=== PATIENT | female | born 1970 | race Caucasian/White ===

== ENCOUNTER 2017-02-08 08:44 | Emergency (ER) | payer MEDICAID ==
[~2017-02-08] VITALS: Ht 157.5 cm; Wt 70.3 kg
[2017-02-08] MEDS ORDERED: SODIUM CHLORIDE 0.9% 1,000 ML IVB ONE (09:06)
[2017-02-08] MEDS ORDERED: ONDANSETRON HCL 4 MG/2 ML VIAL IV ONE (09:15)
[2017-02-08 09:36] LABS: Basophils # (auto) 0.1 uL; Eosinophils # (auto) 0 uL; Hemoglobin 14.5 g/dL (12.2-16.2); Lymphocytes # (auto) 0.6 uL; Neutrophils % (auto) 91.1 % (37.0-80.0)
[2017-02-08 09:37] LABS: Basophils % (auto) 0.8 % (0.0-2.0); Eosinophils % (auto) 0.1 % (0.0-7.0); Lymphocytes % (auto) 3.9 % (10.0-50.0); Mean Corpuscular Hemoglobin 26.3 pg (28.0-32.0); Mean Corpuscular Hgb Conc. 31.6 g/dL (32.0-36.0); Monocytes # (auto) 0.6 uL; Monocytes % (auto) 4.1 % (0.0-12.0); Neutrophils # (auto) 14.1 uL; Platelet Count (auto) 214 10^3/uL (140-450); Red Cell Distribution Width 14.4 % (11.8-14.3); White Blood Cell 15.5 10^3/uL (4.4-10.8)
[2017-02-08 09:39] LABS: Urine Bilirubin Negative (Negative); Urine Blood Negative /uL (Negative); Urine Color Yellow (Yellow); Urine Glucose Normal (Normal); Urine Ketone Negative (Negative); Urine Mucus FEW (None Seen); Urine Nitrite Negative (Negative); Urine RBC <1 /hpf (0 - 4); Urine Squamous Epithelial Cell FEW /hpf (<5); Urine Urobilinogen Normal (Negative)
[2017-02-08 09:57] LABS: Albumin 3.7 g/dL (3.4-5.0); BUN/Creatinine Ratio 24.7; Bilirubin, Total 0.4 mg/dL (0.2-1.0); Calcium 8.8 mg/dL (8.5-10.1); Potassium 4.8 mmol/L (3.5-5.1); Total Protein 8.7 g/dL (6.4-8.2)
[2017-02-08 11:09] VITALS: BP 133/78
== END 2017-02-08 11:42 | disposition home or self-care (01) ==
LOC: ER 08:44
DX: K52.9 Noninfective gastroenteritis and colitis, unspecified (principal); Z91.041 Radiographic dye allergy status
CPT/HCPCS: 36415; 74176; 80053; 81001; 85025; 93005; 94761; 96361; 96374; 99285; J2405; J7030

== ENCOUNTER 2017-03-17 10:20 | Emergency (ER) | payer MEDICAID ==
[~2017-03-17] VITALS: Ht 157.5 cm; Wt 70.8 kg
[2017-03-17 10:45] LABS: Basophils # (auto) 0.1 uL; Basophils % (auto) 0.6 % (0.0-2.0); Eosinophils # (auto) 0.2 uL; Eosinophils % (auto) 1.6 % (0.0-7.0); Hematocrit 43.7 % (36.0-46.0); Hemoglobin 14.2 g/dL (12.2-16.2); Lymphocytes # (auto) 1.8 uL; Lymphocytes % (auto) 18.1 % (10.0-50.0); Mean Corpuscular Hemoglobin 26.5 pg (28.0-32.0); Mean Corpuscular Hgb Conc. 32.4 g/dL (32.0-36.0); Mean Corpuscular Volume 81.8 fL (80.0-100.0); Monocytes # (auto) 0.7 uL; Monocytes % (auto) 7.1 % (0.0-12.0); Neutrophils # (auto) 7.3 uL; Neutrophils % (auto) 72.6 % (37.0-80.0); Nucleated Red Blood Cells % 0.1 %; Platelet Count (auto) 236 10^3/uL (140-450); Red Blood Cells 5.34 10^6/uL (4.0-5.20); Red Cell Distribution Width 14.9 % (11.8-14.3)
[2017-03-17 10:48] LABS: Urine Bacteria NONE SEEN /hpf (None Seen); Urine Blood Negative /uL (Negative); Urine Specific Gravity 1.011 (1.001-1.035); Urine WBC 1 /hpf (0 - 5)
[2017-03-17 11:03] LABS: Albumin 3.6 g/dL (3.4-5.0); BUN/Creatinine Ratio 17.6; Bilirubin, Total 0.3 mg/dL (0.2-1.0); Calcium 9.2 mg/dL (8.5-10.1); Potassium 4.2 mmol/L (3.5-5.1); Total Protein 8.4 g/dL (6.4-8.2)
[2017-03-17] MEDS ORDERED: PROMETHAZINE HCL 25 MG/ML 1ML IV PRN (15:15)
[2017-03-17] MEDS ORDERED: KETOROLAC TROMETH 30 MG/ML 1ML VIAL IV ONE (15:15)
[2017-03-17 15:37] LABS: Magnesium 2.4 mg/dL (1.6-2.6)
[2017-03-17 15:46] VITALS: BP 161/98
== END 2017-03-17 17:28 | disposition home or self-care (01) ==
LOC: ER 10:20
DX: K80.20 Calculus of gallbladder without cholecystitis without obstruction (principal); N39.0 Urinary tract infection, site not specified
CPT/HCPCS: 36415; 76705; 80053; 81001; 82962; 83690; 83735; 85025; 96374; 99285; J1885

== ENCOUNTER 2017-03-19 19:00 | Emergency (ER) | payer MEDICAID ==
[~2017-03-19] VITALS: Ht 157.5 cm; Wt 70.8 kg
[2017-03-19 22:21] VITALS: BP 120/82
[2017-03-19] MEDS ORDERED: SODIUM CHLORIDE 0.9% 1,000 ML IV ONE (23:15)
== END 2017-03-20 00:54 | disposition home or self-care (01) ==
LOC: ER 19:00
DX: R42 Dizziness and giddiness (principal); T50.905A Adverse effect of unspecified drugs, medicaments and biological substances, initial encounter; E86.0 Dehydration; Z90.710 Acquired absence of both cervix and uterus; Z91.041 Radiographic dye allergy status; Y92.89 Other specified places as the place of occurrence of the external cause
CPT/HCPCS: 99284; J7030

== ENCOUNTER 2022-07-18 10:02 | Inpatient (IN) | payer MEDICAID ==
[~2022-07-18] VITALS: Ht 157.5 cm; Wt 62.1 kg
[2022-07-18 10:58] LABS: Basophils # (auto) 0.1 10 ^3/uL (0-0.2); Monocytes # (auto) 0.7 10 ^3/uL (0-1.3); Neutrophils # (auto) 9.1 10 ^3/uL (1.6-8.6); White Blood Cell 11.6 10^3/uL (4.4-10.8)
[2022-07-18 11:01] LABS: Eosinophils # (auto) 0.6 10 ^3/uL (0-0.8); Eosinophils % (auto) 5.4 % (0.0-7.0); Lymphocytes # (auto) 1.1 10 ^3/uL (0.4-5.4); Lymphocytes % (auto) 9.1 % (10.0-50.0); Mean Corpuscular Hemoglobin 26.5 pg (28.0-32.0); Mean Corpuscular Hgb Conc. 32.5 g/dL (32.0-36.0); Mean Corpuscular Volume 81.5 fL (80.0-100.0); Monocytes % (auto) 6.3 % (0.0-12.0); Neutrophils % (auto) 78.2 % (37.0-80.0); Red Blood Cells 4.17 10^6/uL (4.0-5.20); Red Cell Distribution Width 16.4 % (11.8-14.3)
[2022-07-18 11:09] LABS: Urine Bacteria NONE SEEN /hpf (None Seen); Urine Blood 1+ /uL (Negative); Urine Budding Yeast FEW /hpf (None Seen); Urine Mucus FEW (None Seen); Urine Specific Gravity 1.021 (1.001-1.035); Urine WBC 209 /hpf (0 - 5)
[2022-07-18 11:24] LABS: Calcium 10.8 mg/dL (8.5-10.1); Lactic Acid w/Reflex 2.4 mmol/L (0.4-2.0); Potassium 3.2 mmol/L (3.5-5.1)
[2022-07-18 11:30] LABS: BUN/Creatinine Ratio 12.3 (10.0-20.0); Bilirubin, Total 0.5 mg/dL (0.2-1.0); Total Protein 6.3 g/dL (6.4-8.2)
[2022-07-18] MEDS ORDERED: cefTRIAXone 1GM/50ML D5W 50 ML IV ONE (18:00)
[2022-07-18] MEDS ORDERED: NITROGLYCERIN 0.4 MG SL TAB SL PRN (18:00)
[2022-07-18] MEDS ORDERED: ALBUTEROL SULF 2.5 MG/0.5ML(0.5%) NEB SOLN NEB PRN ×2 (18:00→21:00)
[2022-07-18] MEDS ORDERED: IPRATROPIUM BROM 0.5 MG/2.5ML INH SOL NEB PRN ×2 (18:00→21:00)
[2022-07-18] MEDS ORDERED: MORPHINE SULFATE INJ 2 MG/ml SYRG IV PRN ×2 (18:00)
[2022-07-18] MEDS ORDERED: ACETAMINOPHEN 325 MG TAB PO PRN (18:00)
[2022-07-18] MEDS ORDERED: IOHEXOL 350 MG/ML 100ML IJ ONE (18:25)
[2022-07-18] MEDS: SODIUM CHLORIDE 0.9% 1,000 ML IV SCH (18:37)
[2022-07-18] MEDS: POTASSIUM CHL 20MEQ/100ML 100 ML IV SCH ×2 (18:37→22:01)
[2022-07-18] MEDS: ENOXAPARIN SOD 40 MG/0.4 ML SYRINGE SC SCH (18:45)
[2022-07-18] MEDS: ALBUTEROL SULF 2.5 MG/0.5ML(0.5%) NEB SOLN NEB SCH (19:06)
[2022-07-18] MEDS: IPRATROPIUM BROM 0.5 MG/2.5ML INH SOL NEB SCH (19:07)
[2022-07-18 19:13] LABS: CRP High Sensitivity 4.83 mg/dL (< 0.3)
[2022-07-18 20:57] VITALS: BP 103/33
[2022-07-18] MEDS ORDERED: PANTOPRAZOLE 40 MG/10 ML VIAL INJ IV ONE (21:00)
[2022-07-19] MEDS: IPRATROPIUM BROM 0.5 MG/2.5ML INH SOL NEB SCH ×4 (00:35→11:55)
[2022-07-19] MEDS: ALBUTEROL SULF 2.5 MG/0.5ML(0.5%) NEB SOLN NEB SCH ×4 (00:36→11:55)
[2022-07-19 06:35] LABS: Albumin 2.5 g/dL (3.4-5.0); Calcium 10.5 mg/dL (8.5-10.1); Potassium 3.3 mmol/L (3.5-5.1)
[2022-07-19 06:39] LABS: Basophils # (auto) 0.1 10 ^3/uL (0-0.2); Basophils % (auto) 0.8 % (0.0-2.0); Eosinophils # (auto) 0.2 10 ^3/uL (0-0.8); Eosinophils % (auto) 2.3 % (0.0-7.0); Hematocrit 27.5 % (36.0-46.0); Hemoglobin 9.1 g/dL (12.2-16.2); Lymphocytes % (auto) 10.5 % (10.0-50.0); Mean Corpuscular Hgb Conc. 33.2 g/dL (32.0-36.0); Mean Corpuscular Volume 81.5 fL (80.0-100.0); Monocytes # (auto) 0.5 10 ^3/uL (0-1.3); Monocytes % (auto) 5.2 % (0.0-12.0); Neutrophils # (auto) 7.4 10 ^3/uL (1.6-8.6); Neutrophils % (auto) 81.2 % (37.0-80.0); Red Blood Cells 3.38 10^6/uL (4.0-5.20); Red Cell Distribution Width 16.3 % (11.8-14.3); White Blood Cell 9.1 10^3/uL (4.4-10.8)
[2022-07-19 06:40] LABS: BUN/Creatinine Ratio 15.7 (10.0-20.0); Bilirubin, Total 0.4 mg/dL (0.2-1.0); Total Protein 5.5 g/dL (6.4-8.2)
[2022-07-19] MEDS: SODIUM CHLORIDE 0.9% 1,000 ML IV SCH (07:47)
[2022-07-19] MEDS ORDERED: cefTRIAXone 1GM/50ML D5W 50 ML IV SCH (09:00)
[2022-07-19] MEDS: PANTOPRAZOLE 40 MG/10 ML VIAL INJ IV SCH (09:33)
[2022-07-19] MEDS: ENOXAPARIN SOD 40 MG/0.4 ML SYRINGE SC SCH (09:33)
[2022-07-19] MEDS ORDERED: FAMOTIDINE (10MG/ML) 2ML VL IV ONE (12:45)
[2022-07-19] MEDS ORDERED: diphenhdrAMINE HCL 50 MG/1 ML VL IV ONE (12:45)
[2022-07-19] MEDS ORDERED: methylPREDNISolone SOD SUCC 125 MG/2 ML VL IV ONE (12:45)
[2022-07-19] MEDS ORDERED: IOHEXOL 300 MG/ML 100ML BOTTLE IJ ONE (14:58)
[2022-07-19] MEDS ORDERED: VANCOMYCIN PER PHARMACY 0 MG IV SCH (16:15)
[2022-07-19] MEDS ORDERED: VANCOMYCIN 1GM/250ML 250 ML IV ONE (16:45)
[2022-07-19 17:00] VITALS: BP 142/86
[2022-07-19] MEDS: POTASSIUM CHLORIDE 40 MEQ in SOD CHL 0.45% 1,000 ML IV SCH (18:35)
[2022-07-19] MEDS: HYDROcodone-ACET 5/325MG TAB PO PRN (21:21)
[2022-07-19 22:00] VITALS: BP 120/83
[2022-07-20] MEDS: POTASSIUM CHLORIDE 40 MEQ in SOD CHL 0.45% 1,000 ML IV SCH (04:37)
[2022-07-20 05:19] VITALS: BP 155/92
[2022-07-20 06:00] LABS: Basophils # (auto) 0 10 ^3/uL (0-0.2); Basophils % (auto) 0.5 % (0.0-2.0); Eosinophils # (auto) 0 10 ^3/uL (0-0.8); Hematocrit 30.5 % (36.0-46.0); Hemoglobin 10.2 g/dL (12.2-16.2); Lymphocytes # (auto) 0.4 10 ^3/uL (0.4-5.4); Lymphocytes % (auto) 4.7 % (10.0-50.0); Mean Corpuscular Hemoglobin 27.1 pg (28.0-32.0); Mean Corpuscular Hgb Conc. 33.4 g/dL (32.0-36.0); Mean Corpuscular Volume 81.1 fL (80.0-100.0); Monocytes # (auto) 0.3 10 ^3/uL (0-1.3); Monocytes % (auto) 3.3 % (0.0-12.0); Neutrophils # (auto) 8.1 10 ^3/uL (1.6-8.6); Neutrophils % (auto) 91.5 % (37.0-80.0); Red Blood Cells 3.76 10^6/uL (4.0-5.20); Red Cell Distribution Width 16.5 % (11.8-14.3); White Blood Cell 8.9 10^3/uL (4.4-10.8)
[2022-07-20 06:02] LABS: Calcium 11.7 mg/dL (8.5-10.1)
[2022-07-20 06:03] LABS: BUN/Creatinine Ratio 15.4 (10.0-20.0)
[2022-07-20 08:01] LABS: Albumin 2.8 g/dL (3.4-5.0); Calcium 11.2 mg/dL (8.5-10.1); Potassium 4.3 mmol/L (3.5-5.1)
[2022-07-20 08:05] LABS: BUN/Creatinine Ratio 14.6 (10.0-20.0); Bilirubin, Total 0.3 mg/dL (0.2-1.0); Total Protein 6.5 g/dL (6.4-8.2)
[2022-07-20 08:26] LABS: INR 0.95 (0.9-1.15); Partial Thromboplastin Time 23.2 sec (24.6-33.4)
[2022-07-20] MEDS: VANCOMYCIN 1GM/250ML 250 ML IV SCH ×2 (08:50→23:50)
[2022-07-20] MEDS: SODIUM CHLORIDE 0.9% 1,000 ML IV SCH ×3 (08:51→23:34)
[2022-07-20 09:00] VITALS: BP 147/95
[2022-07-20] MEDS ORDERED: cefTRIAXone 1GM/50ML D5W 50 ML IV SCH (10:00)
[2022-07-20] MEDS: PANTOPRAZOLE 40 MG/10 ML VIAL INJ IV SCH (10:10)
[2022-07-20] MEDS: CEFTRIAXONE SODIUM 2 GM in D5W 5% 100 ML IV SCH (10:10)
[2022-07-20] MEDS: ENOXAPARIN SOD 40 MG/0.4 ML SYRINGE SC SCH (10:10)
[2022-07-20 13:00] VITALS: BP 141/74
[2022-07-20 16:00] VITALS: BP 135/75
[2022-07-20 22:00] VITALS: BP 131/85
[2022-07-20] MEDS: HYDROcodone-ACET 5/325MG TAB PO PRN (22:04)
[2022-07-21] MEDS: SODIUM CHLORIDE 0.9% 1,000 ML IV SCH ×3 (03:49→16:35)
[2022-07-21 05:00] VITALS: BP 148/97
[2022-07-21 06:11] LABS: Albumin 2.2 g/dL (3.4-5.0); Calcium 10.7 mg/dL (8.5-10.1); Potassium 3.7 mmol/L (3.5-5.1)
[2022-07-21 06:13] LABS: BUN/Creatinine Ratio 17.5 (10.0-20.0)
[2022-07-21 06:15] LABS: Basophils # (auto) 0.1 10 ^3/uL (0-0.2); Eosinophils # (auto) 0.3 10 ^3/uL (0-0.8); Nucleated Red Blood Cells % 0.1 %; Red Cell Distribution Width 16.4 % (11.8-14.3)
[2022-07-21 06:16] LABS: Bilirubin, Total 0.2 mg/dL (0.2-1.0); Total Protein 5.1 g/dL (6.4-8.2)
[2022-07-21 06:17] LABS: Basophils % (auto) 0.8 % (0.0-2.0); Eosinophils % (auto) 2.7 % (0.0-7.0); Hematocrit 28.8 % (36.0-46.0); Hemoglobin 9.3 g/dL (12.2-16.2); Lymphocytes # (auto) 1.4 10 ^3/uL (0.4-5.4); Lymphocytes % (auto) 12.1 % (10.0-50.0); Mean Corpuscular Hemoglobin 26.5 pg (28.0-32.0); Mean Corpuscular Hgb Conc. 32.5 g/dL (32.0-36.0); Mean Corpuscular Volume 81.6 fL (80.0-100.0); Monocytes # (auto) 0.8 10 ^3/uL (0-1.3); Monocytes % (auto) 6.5 % (0.0-12.0); Neutrophils % (auto) 77.9 % (37.0-80.0); Red Blood Cells 3.53 10^6/uL (4.0-5.20); White Blood Cell 11.6 10^3/uL (4.4-10.8)
[2022-07-21 09:00] VITALS: BP 122/76
[2022-07-21] MEDS: CEFTRIAXONE SODIUM 2 GM in D5W 5% 100 ML IV SCH (10:20)
[2022-07-21] MEDS: ENOXAPARIN SOD 40 MG/0.4 ML SYRINGE SC SCH (10:20)
[2022-07-21] MEDS: PANTOPRAZOLE 40 MG/10 ML VIAL INJ IV SCH (10:20)
[2022-07-21] MEDS ORDERED: GADOTERATE MEG 10 MMOL/20ml INJ (0.5MMOL/ml) IV ONE (10:46)
[2022-07-21] MEDS: VANCOMYCIN 1GM/250ML 250 ML IV SCH (15:17)
[2022-07-21 17:00] VITALS: BP 123/82
[2022-07-21 22:00] VITALS: BP 131/85
[2022-07-22] MEDS: SODIUM CHLORIDE 0.9% 1,000 ML IV SCH ×3 (00:23→15:23)
[2022-07-22] MEDS: HYDROcodone-ACET 5/325MG TAB PO PRN ×2 (00:24→22:28)
[2022-07-22 05:00] VITALS: BP 145/80
[2022-07-22] MEDS: VANCOMYCIN 1GM/250ML 250 ML IV SCH (06:00)
[2022-07-22] MEDS: PANTOPRAZOLE 40 MG/10 ML VIAL INJ IV SCH (08:42)
[2022-07-22] MEDS: CEFTRIAXONE SODIUM 2 GM in D5W 5% 100 ML IV SCH (09:20)
[2022-07-22 09:21] VITALS: BP 155/76
[2022-07-22] MEDS: ENOXAPARIN SOD 40 MG/0.4 ML SYRINGE SC SCH (09:21)
[2022-07-22 13:00] VITALS: BP 142/91
[2022-07-22] MEDS ORDERED: FLUCONAZOLE 200MG/100ML 100 ML IV ONE (13:45)
[2022-07-22] MEDS ORDERED: CLINDAMYCIN 600MG IV 50 ML IV SCH (14:00)
[2022-07-22] MEDS: PIPERACILLIN-TAZOB 3.375GM 100 ML IV SCH ×2 (15:23→22:28)
[2022-07-22 17:00] VITALS: BP 141/77
[2022-07-22 22:00] VITALS: BP 137/82
[2022-07-23] MEDS ORDERED: VANCOMYCIN 1GM/250ML 250 ML IV SCH
[2022-07-23] MEDS: SODIUM CHLORIDE 0.9% 1,000 ML IV SCH ×5 (02:08→21:08)
[2022-07-23 05:00] VITALS: BP 130/84
[2022-07-23] MEDS: PIPERACILLIN-TAZOB 3.375GM 100 ML IV SCH ×3 (06:22→21:06)
[2022-07-23 08:41] VITALS: BP 140/85
[2022-07-23] MEDS: PANTOPRAZOLE 40 MG/10 ML VIAL INJ IV SCH (09:28)
[2022-07-23] MEDS: ENOXAPARIN SOD 40 MG/0.4 ML SYRINGE SC SCH (09:28)
[2022-07-23] MEDS: FLUCONAZOLE 200MG/100ML 100 ML IV SCH (09:28)
[2022-07-23 12:35] VITALS: BP 150/92
[2022-07-23] MEDS: HYDROcodone-ACET 5/325MG TAB PO PRN ×2 (14:59→21:07)
[2022-07-23 16:48] VITALS: BP 134/77
[2022-07-23 22:00] VITALS: BP 151/85
[2022-07-24] MEDS: SODIUM CHLORIDE 0.9% 1,000 ML IV SCH (04:49)
[2022-07-24 05:00] VITALS: BP 172/99
[2022-07-24] MEDS: PIPERACILLIN-TAZOB 3.375GM 100 ML IV SCH (05:26)
[2022-07-24] MEDS: HYDROcodone-ACET 5/325MG TAB PO PRN (05:26)
[2022-07-24 09:00] VITALS: BP 139/83
[2022-07-24] MEDS: PANTOPRAZOLE 40 MG/10 ML VIAL INJ IV SCH (09:17)
[2022-07-24] MEDS: FLUCONAZOLE 200MG/100ML 100 ML IV SCH (09:17)
[2022-07-24] MEDS: ENOXAPARIN SOD 40 MG/0.4 ML SYRINGE SC SCH (09:18)
[2022-07-24] MEDS ORDERED: LEVO500T91 PO (10:49)
== END 2022-07-24 12:25 | disposition home or self-care (01) | DRG 720 ==
LOC: ER 10:02 → TELE 18:17 → TELE-WESTW 07-19 13:56
PROVIDERS: ADMIT Registered Nurse; ATTEND Nurse Practitioner Acute Care
PROC: 0Y963ZX Drainage of Left Inguinal Region, Percutaneous Approach, Diagnostic (ICD-10-PCS; principal; 2022-07-23)
DX: A41.9 Sepsis, unspecified organism (principal); C79.51 Secondary malignant neoplasm of bone; J90 Pleural effusion, not elsewhere classified; E44.0 Moderate protein-calorie malnutrition; N39.0 Urinary tract infection, site not specified; L02.214 Cutaneous abscess of groin; E83.52 Hypercalcemia; Z90.49 Acquired absence of other specified parts of digestive tract; Z82.49 Family history of ischemic heart disease and other diseases of the circulatory system; Z91.041 Radiographic dye allergy status; Z90.711 Acquired absence of uterus with remaining cervical stump; Z80.8 Family history of malignant neoplasm of other organs or systems; Z88.8 Allergy status to other drugs, medicaments and biological substances; Z68.25 Body mass index [BMI] 25.0-25.9, adult
CPT/HCPCS: 36415; 36600; 71045; 71250; 71260; 73723; 74177; 76604; 76942; 80048; 80053; 80061; 80202; 81001; 82306; 82378; 82565; 82805; 83036; 83605; 83615; 83880; 83970; 84100; 84443; 84484; 85025; 85379; 85610; 85652; 85730; 86141; 86304; 87040; 87086; 87088; 87205; 89051; 93005; 93306; 94640; 96361; 96365; 96375; C9113; G0378; J0696; J1450; J2543; J3480; J3490; J7060

== ENCOUNTER 2022-08-01 13:35 | Inpatient (IN) | payer MEDICAID ==
[~2022-08-01] VITALS: Ht 165.1 cm; Wt 61.8 kg
[~2022-08-01 13:35] MED LIST: LEVO500T91 PO
[2022-08-01 14:48] LABS: Urine Amorphous Crystal FEW /hpf (None Seen); Urine Bacteria NONE SEEN /hpf (None Seen); Urine Blood TRACE /uL (Negative); Urine WBC 17 /hpf (0 - 5)
[2022-08-01 15:03] LABS: Basophils # (auto) 0.1 10 ^3/uL (0-0.2); Eosinophils # (auto) 0.4 10 ^3/uL (0-0.8); Mean Corpuscular Hemoglobin 25.7 pg (28.0-32.0); Neutrophils # (auto) 10.8 10 ^3/uL (1.6-8.6)
[2022-08-01 15:05] LABS: Basophils % (auto) 0.8 % (0.0-2.0); Eosinophils % (auto) 2.9 % (0.0-7.0); Hematocrit 34.9 % (36.0-46.0); Hemoglobin 11.1 g/dL (12.2-16.2); Lymphocytes # (auto) 1.3 10 ^3/uL (0.4-5.4); Lymphocytes % (auto) 9.9 % (10.0-50.0); Mean Corpuscular Hgb Conc. 31.8 g/dL (32.0-36.0); Mean Corpuscular Volume 80.9 fL (80.0-100.0); Monocytes % (auto) 7.2 % (0.0-12.0); Neutrophils % (auto) 79.2 % (37.0-80.0); Nucleated Red Blood Cells % 0.1 %; Red Blood Cells 4.31 10^6/uL (4.0-5.20); Red Cell Distribution Width 16.4 % (11.8-14.3); White Blood Cell 13.6 10^3/uL (4.4-10.8)
[2022-08-01] MEDS ORDERED: ENOXAPARIN SOD 60 MG/0.6 ML SYRINGE SC ONE (16:00)
[2022-08-01] MEDS ORDERED: cefTRIAXone 1GM/50ML D5W 50 ML IV ONE (16:00)
[2022-08-01 16:10] LABS: Calcium 11.7 mg/dL (8.5-10.1); Potassium 3.4 mmol/L (3.5-5.1)
[2022-08-01 16:14] LABS: BUN/Creatinine Ratio 10.8 (10.0-20.0); Bilirubin, Total 0.2 mg/dL (0.2-1.0); Total Protein 6.8 g/dL (6.4-8.2)
[2022-08-01] MEDS ORDERED: MORPHINE SULFATE INJ 2 MG/ml SYRG IV PRN (17:00)
[2022-08-01] MEDS ORDERED: DOCUSATE SOD 100 MG CAP PO PRN (17:00)
[2022-08-01] MEDS ORDERED: SODIUM CHLORIDE 0.9% 1,000 ML IV SCH (17:00)
[2022-08-01] MEDS ORDERED: SODIUM CHLORIDE 0.9% 1,000 ML IV ONE (17:15)
[2022-08-01 17:52] LABS: INR 0.97 (0.9-1.15)
[2022-08-01 18:05] LABS: Magnesium 2.2 mg/dL (1.6-2.6); Phosphorus 2.2 mg/dL (2.5-4.90)
[2022-08-01] MEDS: ONDANSETRON HCL 4 MG/2 ML VIAL IV PRN (20:09)
[2022-08-01] MEDS: SODIUM CHLORIDE 0.9% 1,000 ML IV SCH (20:10)
[2022-08-01] MEDS ORDERED: ASPirin 325 MG TAB PO ONE (21:00)
[2022-08-01] MEDS ORDERED: AZITHROMYCIN 500MG/ 250ML 250 ML IV ONE (21:00)
[2022-08-02] MEDS: SODIUM CHLORIDE 0.9% 1,000 ML IV SCH ×3 (05:31→16:46)
[2022-08-02 07:18] LABS: Basophils # (auto) 0.1 10 ^3/uL (0-0.2); Eosinophils # (auto) 0.3 10 ^3/uL (0-0.8); Monocytes # (auto) 0.8 10 ^3/uL (0-1.3); Neutrophils % (auto) 79.6 % (37.0-80.0)
[2022-08-02 07:20] LABS: Basophils % (auto) 0.5 % (0.0-2.0); Eosinophils % (auto) 2.3 % (0.0-7.0); Hematocrit 30.9 % (36.0-46.0); Lymphocytes # (auto) 1.3 10 ^3/uL (0.4-5.4); Lymphocytes % (auto) 10.5 % (10.0-50.0); Mean Corpuscular Hemoglobin 25.9 pg (28.0-32.0); Mean Corpuscular Hgb Conc. 32.2 g/dL (32.0-36.0); Mean Corpuscular Volume 80.3 fL (80.0-100.0); Monocytes % (auto) 7.1 % (0.0-12.0); Neutrophils # (auto) 9.5 10 ^3/uL (1.6-8.6); Nucleated Red Blood Cells % 0.1 %; Red Blood Cells 3.84 10^6/uL (4.0-5.20); Red Cell Distribution Width 16.1 % (11.8-14.3)
[2022-08-02 07:36] LABS: Albumin 2.9 g/dL (3.4-5.0); Calcium 10.9 mg/dL (8.5-10.1); Potassium 3.4 mmol/L (3.5-5.1)
[2022-08-02 07:39] LABS: BUN/Creatinine Ratio 14.2 (10.0-20.0); Bilirubin, Total 0.3 mg/dL (0.2-1.0); Total Protein 6.6 g/dL (6.4-8.2)
[2022-08-02] MEDS ORDERED: PANTOPRAZOLE 40 MG/10 ML VIAL INJ IV SCH (10:00)
[2022-08-02] MEDS: cefTRIAXone 1GM/50ML D5W 50 ML IV SCH (12:15)
[2022-08-02 16:16] VITALS: BP 125/76
[2022-08-02 18:02] VITALS: BP 125/76
[2022-08-02 18:56] VITALS: BP 125/76
[2022-08-02 20:00] VITALS: BP 113/74
[2022-08-02 22:00] VITALS: BP 113/74
[2022-08-03] MEDS: SODIUM CHLORIDE 0.9% 1,000 ML IV SCH ×2 (04:59→10:15)
[2022-08-03 05:00] VITALS: BP 114/74
[2022-08-03 06:27] LABS: Potassium 3.5 mmol/L (3.5-5.1)
[2022-08-03 06:33] LABS: Albumin 2.4 g/dL (3.4-5.0); BUN/Creatinine Ratio 13.3 (10.0-20.0); Bilirubin, Total 0.3 mg/dL (0.2-1.0); Calcium 11.1 mg/dL (8.5-10.1); Total Protein 5.2 g/dL (6.4-8.2)
[2022-08-03] MEDS ORDERED: LEVO500T91 PO (07:38)
[2022-08-03] MEDS ORDERED: ONDA-155 PO (07:38)
[2022-08-03] MEDS: cefTRIAXone 1GM/50ML D5W 50 ML IV SCH (08:30)
[2022-08-03] MEDS: ONDANSETRON HCL 4 MG/2 ML VIAL IV PRN (08:43)
[2022-08-03 09:00] VITALS: BP 132/85
[2022-08-03] MEDS ORDERED: CALCITONIN 200 UNIT/SPRAY NASAL SCH (10:00)
[2022-08-03] MEDS ORDERED: ENOXAPARIN SOD 40 MG/0.4 ML SYRINGE SC SCH (10:00)
[2022-08-03] MEDS ORDERED: ZOLEDRONIC ACID 4 MG in SODIUM CHL 0.9% 100 ML IV ONE (14:30)
[2022-08-03 17:00] VITALS: BP 135/81
== END 2022-08-03 18:50 | disposition home or self-care (01) | DRG 425 ==
LOC: ER 13:35 → TELE 17:03 → TELE-WESTW 08-02 15:44
PROVIDERS: ADMIT Nurse Practitioner Family; ATTEND Hospitalist
DX: E83.52 Hypercalcemia (principal); N17.9 Acute kidney failure, unspecified; E86.0 Dehydration; D50.9 Iron deficiency anemia, unspecified; E87.6 Hypokalemia; C80.1 Malignant (primary) neoplasm, unspecified; N39.0 Urinary tract infection, site not specified; Z88.8 Allergy status to other drugs, medicaments and biological substances; Z82.49 Family history of ischemic heart disease and other diseases of the circulatory system; Z90.710 Acquired absence of both cervix and uterus; Z90.49 Acquired absence of other specified parts of digestive tract
CPT/HCPCS: 36415; 71045; 80053; 81001; 82306; 83605; 83735; 83970; 84100; 84484; 84702; 85025; 85610; 87086; 93005; 97163; 99291; C9113; G0378; J0696; J2405; J3489

== ENCOUNTER 2022-10-02 12:40 | Inpatient (IN) | payer MEDICAID ==
[~2022-10-02] VITALS: Ht 152.4 cm; Wt 55.9 kg
[~2022-10-02 12:40] MED LIST changes: +ONDA-155 PO
[2022-10-02] MEDS ORDERED: DEXTROSE 50% SYRINGE 50 ML IV ONE (12:46)
[2022-10-02 13:48] LABS: Basophils # (auto) 0.1 10 ^3/uL (0-0.2); Basophils % (auto) 0.4 % (0.0-2.0); Eosinophils # (auto) 0 10 ^3/uL (0-0.8); Eosinophils % (auto) 0.3 % (0.0-7.0); Hematocrit 39.3 % (36.0-46.0); Hemoglobin 11.7 g/dL (12.2-16.2); Lymphocytes # (auto) 0.9 10 ^3/uL (0.4-5.4); Lymphocytes % (auto) 5.3 % (10.0-50.0); Mean Corpuscular Hemoglobin 23.8 pg (28.0-32.0); Mean Corpuscular Hgb Conc. 29.8 g/dL (32.0-36.0); Monocytes # (auto) 1.4 10 ^3/uL (0-1.3); Monocytes % (auto) 8.3 % (0.0-12.0); Neutrophils # (auto) 14.5 10 ^3/uL (1.6-8.6); Neutrophils % (auto) 85.7 % (37.0-80.0); Nucleated Red Blood Cells % 0.2 %; White Blood Cell 16.9 10^3/uL (4.4-10.8)
[2022-10-02 13:52] LABS: Red Cell Distribution Width 22.3 % (11.8-14.3)
[2022-10-02 14:15] LABS: Platelet Estimate Increased
[2022-10-02 14:16] LABS: Anisocytosis Slight; Hypochromia Slight
[2022-10-02 15:47] LABS: Alanine Aminotransferase 19 U/L (13-56); Alkaline Phosphatase 82 U/L (45-117); Anion Gap 10 (5-15); Aspartate Aminotransferase 25 U/L (15-37); BUN/Creatinine Ratio 26.9 (10.0-20.0); Bilirubin, Total 0.3 mg/dL (0.2-1.0); Blood Urea Nitrogen 29 mg/dL (7-18); Calcium 11.8 mg/dL (8.5-10.1); Carbon Dioxide 25 mmol/L (21-32); Chloride 103 mmol/L (98-107); GFR African American 68 mL/min; GFR Non-African American 56 mL/min; Glucose 96 mg/dL (74-106); Potassium 5.2 mmol/L (3.5-5.1); Sodium 138 mmol/L (136-145)
[2022-10-02 15:48] LABS: Albumin 2.6 g/dL (3.4-5.0); Total Protein 7.1 g/dL (6.4-8.2)
[2022-10-02] MEDS ORDERED: DOCUSATE SOD 100 MG CAP PO PRN (17:45)
[2022-10-02] MEDS ORDERED: MORPHINE SULFATE INJ 2 MG/ml SYRG IV PRN ×2 (17:45→20:00)
[2022-10-02] MEDS ORDERED: ACETAMINOPHEN 325 MG TAB PO PRN (17:45)
[2022-10-02] MEDS ORDERED: ONDANSETRON HCL 4 MG/2 ML VIAL IV PRN (17:45)
[2022-10-02] MEDS: SODIUM CHLORIDE 0.9% 1,000 ML IV SCH (19:39)
[2022-10-02] MEDS ORDERED: NITROGLYCERIN 0.4 MG SL TAB SL PRN (20:00)
[2022-10-03 02:41] VITALS: PULSE 103; RESP 12; O2SAT 93
[2022-10-03] MEDS: SODIUM CHLORIDE 0.9% 1,000 ML IV SCH ×3 (03:33→18:45)
[2022-10-03 06:12] LABS: Potassium 4.7 mmol/L (3.5-5.1)
[2022-10-03 06:18] LABS: Albumin 2.4 g/dL (3.4-5.0); BUN/Creatinine Ratio 26.9 (10.0-20.0); Bilirubin, Total 0.4 mg/dL (0.2-1.0); Calcium 11.3 mg/dL (8.5-10.1); Total Protein 6.3 g/dL (6.4-8.2)
[2022-10-03 07:09] LABS: Eosinophils # (auto) 0.1 10 ^3/uL (0-0.8); Mean Corpuscular Volume 80.3 fL (80.0-100.0)
[2022-10-03 07:13] LABS: Basophils # (auto) 0 10 ^3/uL (0-0.2); Basophils % (auto) 0.4 % (0.0-2.0); Eosinophils % (auto) 0.6 % (0.0-7.0); Hematocrit 34.6 % (36.0-46.0); Hemoglobin 10.4 g/dL (12.2-16.2); Lymphocytes # (auto) 0.9 10 ^3/uL (0.4-5.4); Lymphocytes % (auto) 7.1 % (10.0-50.0); Mean Corpuscular Hemoglobin 24.3 pg (28.0-32.0); Mean Corpuscular Hgb Conc. 30.2 g/dL (32.0-36.0); Monocytes % (auto) 8.3 % (0.0-12.0); Neutrophils # (auto) 10.5 10 ^3/uL (1.6-8.6); Neutrophils % (auto) 83.6 % (37.0-80.0); Nucleated Red Blood Cells % 0.1 %; White Blood Cell 12.6 10^3/uL (4.4-10.8)
[2022-10-03 07:20] LABS: Red Cell Distribution Width 21.9 % (11.8-14.3)
[2022-10-03] MEDS: ENOXAPARIN SOD 40 MG/0.4 ML SYRINGE SC SCH (07:35)
[2022-10-03 08:09] LABS: INR 1.09 (0.9-1.15); Partial Thromboplastin Time 23.9 SEC (24.5-34.5); Prothrombin Time 11.4 sec (9.3-11.8)
[2022-10-03] MEDS ORDERED: ZOLEDRONIC ACID 4 MG in SODIUM CHL 0.9% 100 ML IV ONE (09:15)
[2022-10-03 14:04] LABS: Body Fluid White Blood Cells 103 CUMM (0-200)
[2022-10-03 14:05] LABS: Body Fluid Red Blood Cells 138 CUMM (0-2000)
[2022-10-03 14:10] LABS: Body Fluid Polymorphonuclear 34 % (0-25)
[2022-10-03 18:59] VITALS: PULSE 80; RESP 22; O2SAT 96
[2022-10-03 20:25] VITALS: BP 134/58; PULSE 108; RESP 22; TEMP 98.6; O2SAT 89
[2022-10-03 22:00] VITALS: BP 134/58; PULSE 108; RESP 22; TEMP 98.6; O2SAT 89
[2022-10-04] VITALS (7 sets, daily range): BP systolic 105–132; BP diastolic 57–71; PULSE 95–107; RESP 14–20; TEMP 97.5–97.9; O2SAT 94–97
[2022-10-04] MEDS: SODIUM CHLORIDE 0.9% 1,000 ML IV SCH ×3 (04:43→22:30)
[2022-10-04] MEDS: ENOXAPARIN SOD 40 MG/0.4 ML SYRINGE SC SCH (10:00)
[2022-10-04 11:07] LABS: Protein, Body Fluid 3.3 g/dL (.)
[2022-10-04] MEDS ORDERED: fentaNYL CITRATE 100 MCG/2 ML VL IV ONE (12:45)
[2022-10-04] MEDS ORDERED: MIDAZOLAM HCL 2MG/2ML 2ml VIAL (1mg/ml) IV ONE (12:45)
[2022-10-04] MEDS ORDERED: LIDOCAINE 2%HCL (LOCAL ANESTH.) INJ 10ml MDV ONE (14:12)
[2022-10-05] VITALS (7 sets, daily range): BP systolic 91–127; BP diastolic 50–74; PULSE 72–104; RESP 14–18; TEMP 87.7–98.2; O2SAT 96–100
[2022-10-05] MEDS: HYDROcodone-ACET 5/325MG TAB PO PRN ×2 (00:29→10:18)
[2022-10-05] MEDS: guaiFENesin-DM 100/10mg/5ml SYR PO PRN ×3 (00:35→21:28)
[2022-10-05] MEDS: SODIUM CHLORIDE 0.9% 1,000 ML IV SCH ×3 (04:05→20:45)
[2022-10-05] MEDS: ENOXAPARIN SOD 40 MG/0.4 ML SYRINGE SC SCH (09:58)
[2022-10-05] MEDS ORDERED: VANCOMYCIN PER PHARMACY 0 MG IV SCH (16:45)
[2022-10-05] MEDS: MUPIROCIN 2% OINT 15gm or 22gm FOR MRSA NARES EACHNOSTRI SCH ×2 (16:49→21:29)
[2022-10-05] MEDS ORDERED: VANCOMYCIN 750mg/250ml 250 ML IV ONE (18:00)
[2022-10-05] MEDS: VANCOMYCIN 750mg/250ml 250 ML IV SCH (20:18)
[2022-10-06] VITALS (7 sets, daily range): BP systolic 102–153; BP diastolic 60–71; PULSE 97–105; RESP 16–22; TEMP 97.6–98.3; O2SAT 94–99
[2022-10-06] MEDS: SODIUM CHLORIDE 0.9% 1,000 ML IV SCH ×3 (05:11→21:45)
[2022-10-06] MEDS: ENOXAPARIN SOD 40 MG/0.4 ML SYRINGE SC SCH (09:09)
[2022-10-06] MEDS: HYDROcodone-ACET 5/325MG TAB PO PRN (09:10)
[2022-10-06] MEDS: MUPIROCIN 2% OINT 15gm or 22gm FOR MRSA NARES EACHNOSTRI SCH ×2 (10:11→21:50)
[2022-10-06] MEDS: VANCOMYCIN 750mg/250ml 250 ML IV SCH (15:23)
[2022-10-06] MEDS: guaiFENesin-DM 100/10mg/5ml SYR PO PRN (21:48)
[2022-10-07] VITALS (7 sets, daily range): BP systolic 87–142; BP diastolic 52–67; PULSE 70–104; RESP 16–20; TEMP 97.8–98.1; O2SAT 95–100
[2022-10-07] MEDS: HYDROcodone-ACET 5/325MG TAB PO PRN ×2 (02:08→15:34)
[2022-10-07] MEDS: SODIUM CHLORIDE 0.9% 1,000 ML IV SCH ×3 (05:43→22:45)
[2022-10-07] MEDS: MUPIROCIN 2% OINT 15gm or 22gm FOR MRSA NARES EACHNOSTRI SCH ×2 (11:19→21:54)
[2022-10-07] MEDS: VANCOMYCIN 750mg/250ml 250 ML IV SCH (11:19)
[2022-10-07] MEDS: ENOXAPARIN SOD 40 MG/0.4 ML SYRINGE SC SCH (11:19)
[2022-10-08] MEDS: guaiFENesin-DM 100/10mg/5ml SYR PO PRN (01:12)
[2022-10-08 05:19] VITALS: BP 151/70; PULSE 95; RESP 19; TEMP 98; O2SAT 97
[2022-10-08 05:37] LABS: BUN/Creatinine Ratio 21.2 (10.0-20.0); Calcium 7.9 mg/dL (8.5-10.1)
[2022-10-08 05:43] LABS: Basophils # (auto) 0.1 10 ^3/uL (0-0.2); Eosinophils # (auto) 0.2 10 ^3/uL (0-0.8); Hemoglobin 9.1 g/dL (12.2-16.2); Neutrophils % (auto) 81.6 % (37.0-80.0)
[2022-10-08 05:47] LABS: Basophils % (auto) 0.9 % (0.0-2.0); Eosinophils % (auto) 2.7 % (0.0-7.0); Hematocrit 29.1 % (36.0-46.0); Lymphocytes # (auto) 0.5 10 ^3/uL (0.4-5.4); Lymphocytes % (auto) 6.3 % (10.0-50.0); Mean Corpuscular Hemoglobin 24.7 pg (28.0-32.0); Mean Corpuscular Hgb Conc. 31.1 g/dL (32.0-36.0); Mean Corpuscular Volume 79.3 fL (80.0-100.0); Monocytes # (auto) 0.7 10 ^3/uL (0-1.3); Monocytes % (auto) 8.5 % (0.0-12.0); Neutrophils # (auto) 6.8 10 ^3/uL (1.6-8.6); Nucleated Red Blood Cells % 0.3 %; Red Blood Cells 3.67 10^6/uL (4.0-5.20); White Blood Cell 8.3 10^3/uL (4.4-10.8)
[2022-10-08 05:49] LABS: Red Cell Distribution Width 21.5 % (11.8-14.3)
[2022-10-08] MEDS: VANCOMYCIN 750mg/250ml 250 ML IV SCH ×2 (06:16→17:00)
[2022-10-08] MEDS: SODIUM CHLORIDE 0.9% 1,000 ML IV SCH ×2 (07:05→15:25)
[2022-10-08 08:00] VITALS: PULSE 93
[2022-10-08 08:30] VITALS: BP 164/77; PULSE 101; RESP 19; TEMP 98.9; O2SAT 95
[2022-10-08] MEDS: ENOXAPARIN SOD 40 MG/0.4 ML SYRINGE SC SCH (10:00)
[2022-10-08] MEDS: MUPIROCIN 2% OINT 15gm or 22gm FOR MRSA NARES EACHNOSTRI SCH (10:01)
[2022-10-08] MEDS ORDERED: hydrALAZINE HCL 20 MG/ML VL IV PRN ×2 (10:15→10:45)
[2022-10-08] MEDS: HYDROcodone-ACET 5/325MG TAB PO PRN (11:24)
[2022-10-08] MEDS ORDERED: DOXY-286 PO (13:01)
[2022-10-08 13:40] VITALS: BP 151/68; PULSE 99; RESP 14; TEMP 98.2; O2SAT 97
[2022-10-08 16:03] VITALS: BP 151/68; PULSE 99; RESP 14; TEMP 98.2; O2SAT 97
[2022-10-08 17:39] VITALS: BP 141/71; PULSE 100; RESP 15; TEMP 97.8; O2SAT 96
== END 2022-10-08 19:10 | disposition home health service (06) | DRG 530 ==
LOC: ER 12:40 → TELE 19:58 → TELE-CENTR 10-03 20:03
PROVIDERS: ADMIT Internal Medicine; ATTEND Internal Medicine
PROC: 0W993ZZ Drainage of Right Pleural Cavity, Percutaneous Approach (ICD-10-PCS; principal; 2022-10-03)
PROC: 0BBG3ZX Excision of Left Upper Lung Lobe, Percutaneous Approach, Diagnostic (ICD-10-PCS; 2022-10-04)
PROC: 0W993ZZ Drainage of Right Pleural Cavity, Percutaneous Approach (ICD-10-PCS; 2022-10-04)
DX: C51.9 Malignant neoplasm of vulva, unspecified (principal); J96.00 Acute respiratory failure, unspecified whether with hypoxia or hypercapnia; C79.89 Secondary malignant neoplasm of other specified sites; I96 Gangrene, not elsewhere classified; J90 Pleural effusion, not elsewhere classified; J93.83 Other pneumothorax; C78.6 Secondary malignant neoplasm of retroperitoneum and peritoneum; R62.7 Adult failure to thrive; D64.9 Anemia, unspecified; D72.829 Elevated white blood cell count, unspecified; E83.52 Hypercalcemia; K80.20 Calculus of gallbladder without cholecystitis without obstruction; N76.2 Acute vulvitis; E87.5 Hyperkalemia; M54.50 Low back pain, unspecified; R77.8 Other specified abnormalities of plasma proteins; Z91.041 Radiographic dye allergy status; Z90.49 Acquired absence of other specified parts of digestive tract; Z79.899 Other long term (current) drug therapy; Z90.710 Acquired absence of both cervix and uterus; Z82.49 Family history of ischemic heart disease and other diseases of the circulatory system; Z80.0 Family history of malignant neoplasm of digestive organs; Z80.51 Family history of malignant neoplasm of kidney; Z80.6 Family history of leukemia; Z80.7 Family history of other malignant neoplasms of lymphoid, hematopoietic and related tissues; Z87.440 Personal history of urinary (tract) infections; R91.8 Other nonspecific abnormal finding of lung field
CPT/HCPCS: 10005; 36415; 71045; 71250; 74176; 76604; 76942; 77012; 80048; 80053; 80202; 82378; 82565; 83615; 83986; 84484; 85025; 85610; 85730; 87040; 87077; 87186; 87205; 89051; 93005; 97110; 97116; 97163; 97530; G0378; J2001; J2250; J2405; J3489